=== PATIENT | male | born 1985 ===

== ENCOUNTER 2025-04-15 04:07 | Emergency (ER) | payer SELFPAY ==
[~2025-04-15] VITALS: Ht 177.8 cm; Wt 79.5 kg
[2025-04-15 05:21] VITALS: BP 125/78; PULSE 85; RESP 15; TEMP 99.1; O2SAT 98
== END 2025-04-15 08:43 | disposition left against medical advice (07) ==
LOC: ER 04:09
DX: S80.822A Blister (nonthermal), left lower leg, initial encounter (principal); Z91.030 Bee allergy status; Z53.21 Procedure and treatment not carried out due to patient leaving prior to being seen by health care provider; X58.XXXA Exposure to other specified factors, initial encounter; Y93.89 Activity, other specified; Y92.89 Other specified places as the place of occurrence of the external cause; Y99.8 Other external cause status
CPT/HCPCS: 99281